=== PATIENT | male | born 1995 | race Caucasian/White ===

== ENCOUNTER 2021-04-11 12:29 | Inpatient (IN) ==
[2021-04-11] MEDS: Nicotine 21 MG PATCH.TD24 TD SCH (13:38)
[2021-04-11 15:05] LABS: Adenovirus Not Detected (Not Detect); Bordetella Pertussis Not Detected (Not Detect); Chlamydophila pneumoniae Not Detected (Not Detect); Coronavirus 229E Not Detected (Not Detect); Coronavirus HKU1 Not Detected (Not Detect); Coronavirus NL63 Not Detected (Not Detect); Coronavirus OC43 Not Detected (Not Detect); Human Metapneumovirus Not Detected (Not Detect); Human Rhinovirus/Enterovirus Not Detected (Not Detect); Influenza A Subtype 2009 H1 Not Detected (Not Detect); Influenza B Not Detected (Not Detect); Mycoplasma pneumoniae Not Detected (Not Detect); Parainfluenza Virus 1 Not Detected (Not Detect); Parainfluenza Virus 2 Not Detected (Not Detect); Parainfluenza Virus 3 Not Detected (Not Detect); Parainfluenza Virus 4 Not Detected (Not Detect); Respiratory Syncytial Virus Not Detected (Not Detect); SARS-CoV-2 Not Detected (Not Detect)
[2021-04-11] MEDS ORDERED: haloperidoL 5 MG TABLET PO PRN (15:15)
[2021-04-11] MEDS ORDERED: *HR* LORazepam 2 MG/ML VIAL IM PRN (15:15)
[2021-04-11] MEDS ORDERED: *HR* LORazepam 1 MG TABLET PO PRN (15:15)
[2021-04-11] MEDS ORDERED: Haloperidol Lactate 5 MG/ML VIAL IM PRN (15:15)
[2021-04-11] MEDS ORDERED: Acetaminophen 325 MG TABLET PO PRN (15:15)
[2021-04-11] MEDS: hydrOXYzine pamoate 25 MG CAPSULE PO PRN (20:37)
[2021-04-11] MEDS: traZODone 50 MG TABLET PO PRN (20:37)
[2021-04-12] MEDS: Nicotine 21 MG PATCH.TD24 TD SCH (08:51)
[2021-04-12] MEDS ORDERED: Nicotine 21 MG PATCH.TD24 TD SCH (09:00)
[2021-04-12] MEDS ORDERED: MOM Conc 10 ML UD.LIQ PO PRN (09:24)
[2021-04-12] MEDS ORDERED: Mag Hydrox/Al Hydrox/Simeth 30 ML UDC PO PRN (09:24)
[2021-04-12] MEDS: hydrOXYzine pamoate 25 MG CAPSULE PO PRN (10:25)
[2021-04-12] MEDS ORDERED: QUEtiapine Fumarate 25 MG TABLET PO PRN (10:59)
[2021-04-12] MEDS: traZODone 50 MG TABLET PO PRN (20:41)
[2021-04-13] MEDS: Nicotine 21 MG PATCH.TD24 TD SCH (08:51)
[2021-04-13] MEDS ORDERED: Folic Acid 1 MG TABLET PO SCH (09:00)
[2021-04-13] MEDS ORDERED: Thiamine (B-1) 100 MG TABLET PO SCH (09:00)
[2021-04-13] MEDS: hydrOXYzine pamoate 25 MG CAPSULE PO PRN (09:47)
[2021-04-13 09:50] VITALS: BP 129/83
== END 2021-04-13 15:25 | disposition home or self-care (01) | DRG 754 ==
LOC: EMEROOARM 12:29 → 1ANU 15:12
PROVIDERS: ADMIT Psychiatry & Neurology Psychiatry; ATTEND Psychiatry & Neurology Psychiatry